=== PATIENT | male | born 1980 | race Caucasian/White ===

== ENCOUNTER 2016-11-12 14:45 | Emergency (ER) | payer OTHER ==
[2016-11-12 15:02] VITALS: BP 157/80; PULSE 92; RESP 18; TEMP 97.9
--- NOTE | 2016-11-12 15:24 | ED ---
General Adult HPI - General Chief complaint: Skin/Abscess/Foreign Body Stated complaint: Arm Pain Time Seen by Provider: 11/12/16 15:01 Source: patient, RN notes reviewed Mode of arrival: ambulatory Limitations: no limitations - History of Present Illness Initial comments: This is a 36-year-old male presents with erythema and swelling to the volar aspect of the right forearm. Patient states this started yesterday and has gotten more red today. patient denies any fever/chills. Patient also complains of a rash to the back of his arms that it is worse at night. Patient has a history of asthma and ALLERGIES. Patient states the rash has been present for 6 months. No one else in his house, including his child and , have this rash. Patient denies any recent fever, chills, shortness breath, chest pain, abdominal pain, nausea/vomiting/diarrhea, back pain, numbness, tingling, hematuria, headache, or visual changes, or any other complaints. - Related Data Home Medications Medication Instructions Recorded Confirmed Albuterol Inhaler [Ventolin Hfa 2 puff INHALATION RT-Q6H PRN 11/12/16 11/12/16 Inhaler] Budesonide/Formoterol Fumarate 2 puff INHALATION RT-BID 11/12/16 11/12/16 [Symbicort 160-4.5 Mcg Inhaler] Previous Rx's Medication Instructions Recorded Sulfamethox-Tmp 800-160Mg [Bactrim 1 tab PO Q12HR #20 tab 11/12/16 DS 800-160 mg] Allergies Allergy/AdvReac Type Severity Reaction Status Date / Time No Known Allergies Allergy Verified 11/12/16 15:07 Review of Systems ROS Statement: Those systems with pertinent positive or pertinent negative responses have been documented in the HPI. ROS Other: All systems not noted in ROS Statement are negative. Past Medical History Past Medical History: No Reported History History of Any Multi-Drug Resistant Organisms: None Reported Past Surgical History: No Surgical Hx Reported Past Psychological History: No Psychological Hx Reported Smoking Status: Never smoker Past Alcohol Use History: None Reported Past Drug Use History: None Reported General Exam - General Exam Comments Initial Comments: General: The patient is awake and alert, in no distress, and does not appear acutely ill. Neck: The neck is supple, there is no tenderness or JVD. Cardiovascular: There is a regular rate and rhythm. No murmur, rub or gallop is appreciated. Respiratory: Lungs are clear to auscultation, respirations are non-labored, breath sounds are equal. No wheezes, stridor, rales, or rhonchi. Musculoskeletal: Full range of motion, strength 5/5 and Sensation intact. Radial pulses 2+ bilaterally. Neurological: A&O x 3. CN II-XII intact, There are no obvious motor or sensory deficits. Coordination appears grossly intact. Speech is normal. Skin: There is an area of erythema to the volar aspect of the distal right forearm. There is no significant swelling or purulent drainage. Patient also has a pruritic rash with scattered scabbed lesions to the back of his upper extremities consistent with eczema. There is no rash the patient's hands, wrists. Skin is warm and dry. Psychiatric: Normal mood and affect. Limitations: no limitations Course Vital Signs 11/12/16 14:59 Temperature 97.9 F Pulse Rate 92 Respiratory 18 Rate Blood Pressure 157/80 O2 Sat by Pulse 100 Oximetry Medical Decision Making - Medical Decision Making Is a 36-year-old male presents with redness to the forearm and a rash the back of his arms. On physical exam patient is afebrile in the EC. There is an area of erythema to the volar aspect of the distal right forearm. There is no significant swelling or purulent drainage. Patient also has a pruritic rash with scattered scabbed lesions to the back of his upper extremities consistent with eczema. There is no rash the patient's hands, wrists. Skin is warm and dry. I discussed that this rash is consistent with an atopic dermatitis. I discussed that patient has mild cellulitis to the right forearm and he will be started on Bactrim for this. Discussed warm compresses to the area. I discussed return parameters. I discussed lotions for the rash. Discussed that patient should follow up with PCP in one to 2 days or return to the [facility] for any worsening symptoms or for any further concerns. Patient was receptive to this plan and patient will be discharged home. Disposition Clinical Impression: Atopic dermatitis, Cellulitis Disposition: HOME SELF-CARE Condition: Good Instructions: Eczema (ED), Cellulitis (ED) Additional Instructions: Please finish the entire course of antibiotics. Please use warm compresses to the area. Please use moisturizer to the areas of itching and may use over-the- counter hydrocortisone cream to these areas. Please follow-up with family doctor in the next 2 days of symptoms have not improved. Please return to emergency room if the symptoms increase or worsen or for any other concerns. Prescriptions: Sulfamethox-Tmp 800-160Mg [Bactrim DS 800-160 mg] 1 tab PO Q12HR #20 tab Referrals: Marie Horton MD [Primary Care Provider] - 1-2 days Time of Disposition: 15:24
== END 2016-11-12 15:28 | disposition home or self-care (01) ==
LOC: EC 14:45
DX: L20.9 Atopic dermatitis, unspecified (principal); L03.113 Cellulitis of right upper limb; J45.909 Unspecified asthma, uncomplicated; Z79.51 Long term (current) use of inhaled steroids
CPT/HCPCS: 99282